=== PATIENT | female | born 1980 | race American Indian/Alaskan Native ===

== ENCOUNTER 2017-05-23 10:16 | Inpatient (IN) | payer OTHER, SELFPAY ==
[2017-05-23 12:09] LABS: Basophils % (Auto) 0.4 % (0.0-1.8); Eosinophils % (Auto) 0.1 % (0.0-4.3); Hematocrit 43.2 % (30.3-42.9); Hemoglobin 14.4 gm/dl (10.1-14.3); Lymphocytes # (Auto) 1.1 K/mm3 (1.2-5.4); Lymphocytes % (Auto) 13.1 % (13.4-35.0); Mean Corpuscular HGB Conc 33 % (30-34); Mean Corpuscular Hemoglobin 33 pg (28-32); Mean Corpuscular Volume 98 fl (79-97); Monocytes # (Auto) 0.4 K/mm3 (0.0-0.8); Monocytes % (Auto) 4.5 % (0.0-7.3); Platelet Count 305 K/mm3 (140-440); Red Blood Count 4.39 M/mm3 (3.65-5.03); Red Cell Distribution Width 13.8 % (13.2-15.2)
[2017-05-23 12:32] LABS: BUN/Creatinine Ratio 14; Blood Urea Nitrogen 10 mg/dL (7-17); Hemolysis Index 28
[2017-05-23 13:16] LABS: Bilirubin,Urine NEG (Negative); Blood,Urine MOD (Negative); Color,Urine Straw (Yellow); Mucus,Urine FEW /HPF; Nitrite,Urine NEG (Negative); Protein,Urine <15 mg/dL mg/dL (Negative); Urobilinogen,Urine < 2.0 mg/dL (<2.0)
[2017-05-23] MEDS ORDERED: NACL 0.9% 1000 ML 1,000 ML IV ONE (18:57)
[2017-05-23] MEDS ORDERED: TORADOL IV ONE (18:57)
--- NOTE | 2017-05-23 19:42 | Emergency Department Report ---
ED Abdominal Pain HPI - General Chief Complaint: Abdominal Pain Stated Complaint: COLD/ABD PAIN Time Seen by Provider: 05/23/17 18:54 Source: patient Mode of arrival: Ambulatory Limitations: No Limitations - History of Present Illness Initial Comments: This is a 36-year-old female nontoxic, well nourished in appearance, no acute signs of distress presents to the ED with c/o of body aches, weakness, abdominal pain x1 week. Patient denies any chest pain, shortness of breath, fever, chills, nausea or vomiting, headache, stiff neck or back pain. Patient stated she One diabetic and has has been taking her insulin as directed by the provider. Patient denies any drug allergies. Past medical history includes type 1 diabetes. MD Complaint: abdominal pain, other (weakness) -: week(s) (1) Location: diffuse Radiation: none Migration to: no migration Severity: mild Severity scale (0 -10): 8 Quality: aching Consistency: constant Improves With: nothing Worsens With: nothing Associated Symptoms: denies other symptoms. denies: nausea, vomiting, diarrhea , fever, chills, constipation, dysuria, hematochezia, melena, hematuria, anorexia, syncope - Related Data Previous Rx's Medication Instructions Recorded Last Taken Type Insulin Aspart [NovoLOG 100 1 dose SQ AC #100 ml 10/26/15 Unknown Rx UNITS/ML VIAL] Insulin NPH/Regular [NovoLIN 70/30] 20 unit SUB-Q BIDDIAB 30 Days 10/26/15 Unknown Rx units Allergies Allergy/AdvReac Type Severity Reaction Status Date / Time No Known Allergies Allergy Verified 01/02/14 11:05 ED Review of Systems ROS: Stated complaint: COLD/ABD PAIN Other details as noted in HPI Constitutional: denies: chills, fever Eyes: denies: eye pain, eye discharge, vision change ENT: denies: ear pain, throat pain Respiratory: denies: cough, shortness of breath, wheezing Cardiovascular: denies: chest pain, palpitations Endocrine: no symptoms reported Gastrointestinal: abdominal pain. denies: nausea, diarrhea Genitourinary: denies: urgency, dysuria, discharge Musculoskeletal: denies: back pain, joint swelling, arthralgia Skin: denies: rash, lesions Neurological: denies: headache, weakness, paresthesias Psychiatric: denies: anxiety, depression Hematological/Lymphatic: denies: easy bleeding, easy bruising ED Past Medical Hx - Past Medical History Previous Medical History?: Yes Hx Congestive Heart Failure: No Hx Diabetes: Yes (type 1) Hx Asthma: No Hx COPD: No Hx HIV: No Additional medical history: Complex left ovarian cyst diagnosed [address] and ultrasound, Vaginal delivery x 2 - Surgical History Past Surgical History?: No - Social History Smoking Status: Never Smoker Substance Use Type: Non Opiate Pain, Prescribed, Other - Medications Home Medications: Home Medications Medication Instructions Recorded Confirmed Last Taken Type Insulin Aspart [NovoLOG 100 1 dose SQ AC #100 ml 10/26/15 Unknown Rx UNITS/ML VIAL] Insulin NPH/Regular [NovoLIN 70/30] 20 unit SUB-Q BIDDIAB 30 Days 10/26/15 Unknown Rx units ED Physical Exam - General Limitations: No Limitations General appearance: alert, in no apparent distress - Head Head exam: Present: atraumatic, normocephalic - Eye Eye exam: Present: normal appearance, PERRL, EOMI Pupils: Present: normal accommodation - ENT ENT exam: Present: normal exam, normal orophraynx, mucous membranes moist, TM's normal bilaterally, normal external ear exam - Neck Neck exam: Present: normal inspection, full ROM. Absent: tenderness, meningismus, lymphadenopathy, thyromegaly - Respiratory Respiratory exam: Present: normal lung sounds bilaterally. Absent: respiratory distress, wheezes, rales, rhonchi, stridor, chest wall tenderness, accessory muscle use, decreased breath sounds, prolonged expiratory - Cardiovascular Cardiovascular Exam: Present: regular rate, normal rhythm, normal heart sounds. Absent: irregular rhythm, systolic murmur, diastolic murmur, rubs, gallop - GI/Abdominal GI/Abdominal exam: Present: soft, normal bowel sounds. Absent: distended, tenderness, guarding, rebound, rigid, diminished bowel sounds - Rectal Rectal exam: Present: deferred - Extremities Exam Extremities exam: Present: normal inspection, full ROM, normal capillary refill. Absent: tenderness, pedal edema, joint swelling, calf tenderness - Back Exam Back exam: Present: normal inspection, full ROM. Absent: tenderness, CVA tenderness (R), CVA tenderness (L), muscle spasm, paraspinal tenderness, vertebral tenderness, rash noted - Neurological Exam Neurological exam: Present: alert, oriented X3, CN II-XII intact, normal gait, reflexes normal - Expanded Neurological Exam Expanded Patient oriented to: Present: person, place, time Cranial nerves: EOM's Intact: Normal, Gag Reflex: Normal, Tongue Deviation: Normal, Nystagmus: Normal, Facial Sensation: Normal, Facial Palsy with Forehead Movement: Normal, Facial Palsy without Forehead Movement: Normal Cerebellar function: Finger to Nose: Normal, Heel to Zapien: Normal, Romberg: Normal Upper motor neuron: Alexis Neglect: Normal, Pronator Drift: Normal, Babinski Sign : Normal, Sensory Extinction: Normal Sensory exam: Upper Extremity Light Touch: Normal, Upper Extremity Pin Prick: Normal, Upper Extremity Temperature: Normal, UE 2 Point Discrimination: Normal, Lower Extremity Light Touch: Normal, Lower Extremity Pin Prick: Normal, Lower Extremity Temperature: Normal, LE 2 Point Discrimination: Normal Motor strength exam: RUE: 5, LUE: 5, RLE: 5, LLE: 5 DTR: bicep (R): 2+, bicep (L): 2+, tricep (R): 2+, tricep (L): 2+, knee (R): 2+ , knee (L): 2+, ankle (R): 2+, ankle (L): 2+ Best Eye Response (Jermyn): (4) open spontaneously Best Motor Response (Jermyn): (6) obeys commands Best Verbal Response (Olga): (5) oriented Jermyn Total: 15 - Psychiatric Psychiatric exam: Present: normal affect, normal mood - Skin Skin exam: Present: warm, dry, intact, normal color. Absent: rash ED Course Vital Signs 05/23/17 05/23/17 11:39 15:31 Temperature 97.7 F 98.2 F Pulse Rate 105 H 124 H Respiratory 20 18 Rate Blood Pressure 128/85 127/81 O2 Sat by Pulse 98 98 Oximetry - Reevaluation(s) Reevaluation #1: 05/23/17 20:03 Patient is speaking in full sentences with no signs of distress noted. - Consultations Consultation #1: 05/23/17 20:06 [address] Shea consulted about patient and agrees to the plan of care in the ED. Dr. Shea accepts patient to his services and stated he will start patient on insulin. ED Medical Decision Making - Lab Data Result diagrams: 05/23/17 11:49 05/23/17 11:49 - Medical Decision Making This is a 36-year-old female that presents with DKA. Patient is stable and was examined by me. Labs obtained and indicated patient in DKA. Dr. Barnett was consulted about patient and agrees for admission. Dr. Shea consulted and is aware of her DKA and acidosis and increased admission. Patient was given 2 L of IV fluids. Dr. Shea stated he will put the patient on insulin and admit patient. Patient is put on cardiac montior. Patient is mental status is intact. A/O 3. CT of abdomen/pelvis with contrast obtained and pending. EKG obtained. At time of admission, the patient does not seem toxic or ill in appearance. No acute signs of distress noted. Patient agrees to admission plan of care. No further questions noted by the patient. Critical care attestation.: If time is entered above; I have spent that time in minutes in the direct care of this critically ill patient, excluding procedure time. ED Disposition Clinical Impression: DKA (diabetic ketoacidoses) Qualifiers: Diabetes mellitus type: type 1 Diabetes mellitus complication detail: without coma Qualified Code(s): E10.10 - Type 1 diabetes mellitus with ketoacidosis without coma Disposition: DC-09 OP ADMIT IP TO THIS HOSP Is pt being admited?: Yes Does the pt Need Aspirin: No Condition: Stable Instructions: Abdominal Pain (ED), Diabetic Ketoacidosis (ED) Referrals: ANDREW GAVIRIA MD [Primary Care Provider] - 3-5 Days
[2017-05-23] MEDS ORDERED: NACL 0.9% 1000 ML 2,000 ML IV ONE (20:12)
[2017-05-23] MEDS ORDERED: SODIUM BICARBONATE IV ONE (20:12)
[2017-05-23] MEDS ORDERED: NOVOLOG SUB-Q ONE ×2 (20:13)
--- NOTE | 2017-05-23 20:16 | History and Physical Report ---
Medications and Allergies Allergies Allergy/AdvReac Type Severity Reaction Status Date / Time No Known Allergies Allergy Verified 01/02/14 11:05 Home Medications Medication Instructions Recorded Confirmed Last Taken Type Insulin Aspart [NovoLOG 100 1 dose SQ AC #100 ml 10/26/15 Unknown Rx UNITS/ML VIAL] Insulin NPH/Regular [NovoLIN 70/30] 20 unit SUB-Q BIDDIAB 30 Days 10/26/15 Unknown Rx units Active Meds: Active Medications Sodium Chloride (Nacl 0.9% 1000 Ml) 2,000 mls @ 999 mls/hr IV BOLUS ONE Stop: 05/23/17 22:12 Exam - Constitutional Vitals: Temp Pulse Resp BP Pulse Ox 98.2 F 124 H 18 127/81 98 05/23/17 15:31 05/23/17 15:31 05/23/17 15:31 05/23/17 15:31 05/23/17 15:31 Results - Labs CBC & Chem 7: 05/23/17 11:49 05/23/17 11:49 Labs: Abnormal lab results 05/23/17 05/23/17 05/23/17 Range/Units 11:49 11:49 11:49 Hgb 14.4 H (10.1-14.3) gm/dl Hct 43.2 H (30.3-42.9) % MCV 98 H (79-97) fl MCH 33 H (28-32) pg Lymph % (Auto) 13.1 L (13.4-35.0) % Lymph # 1.1 L (1.2-5.4) K/mm3 Seg Neutrophils % 81.9 H (40.0-70.0) % VBG pH 7.247 L (7.320-7.420) Sodium 133 L (137-145) mmol/L Chloride 93.0 L (98-107) mmol/L Carbon Dioxide 11 L (22-30) mmol/L Glucose 310 H (65-100) mg/dL POC Glucose (70-105) 05/23/17 Range/Units 15:29 Hgb (10.1-14.3) gm/dl Hct (30.3-42.9) % MCV (79-97) fl MCH (28-32) pg Lymph % (Auto) (13.4-35.0) % Lymph # (1.2-5.4) K/mm3 Seg Neutrophils % (40.0-70.0) % VBG pH (7.320-7.420) Sodium (137-145) mmol/L Chloride (98-107) mmol/L Carbon Dioxide (22-30) mmol/L Glucose (65-100) mg/dL POC Glucose 242 H (70-105)
--- NOTE | 2017-05-23 20:44 | XRay Report ---
FINAL REPORT EXAM: XR CHEST ROUTINE 2V HISTORY: cough TECHNIQUE: PA and lateral views of the chest PRIORS: None. FINDINGS: Lines, tubes, and devices: N/A Lungs and pleura: Trachea is normal in position. Lungs are clear of infiltrate, pleural effusion, vascular congestion, or pneumothorax. Cardiomediastinal silhouette: Cardiac and mediastinal silhouettes are unremarkable. Other: Bony structures are intact. Bilateral nipple bars are in place. IMPRESSION: No acute cardiopulmonary process seen.
[2017-05-23 21:14] LABS: BUN/Creatinine Ratio 11; Blood Urea Nitrogen 9 mg/dL (7-17); Calcium 9.5 mg/dL (8.4-10.2); Hemolysis Index 0
--- NOTE | 2017-05-23 21:54 | Cat Scan Report ---
FINAL REPORT EXAM: CT ABDOMEN PELVIS W CON HISTORY: abd pain TECHNIQUE: Standard enhanced CT of the abdomen and pelvis. Coronal and sagittal reconstruction was also performed. Delayed imaging through the kidneys and bladder was obtained. Contrast: 100 mL Omnipaque 300 given IV. PRIORS: CT a/P 01/03/2015 FINDINGS: Within the abdomen, the liver, spleen, pancreas, gallbladder, adrenal glands, and kidneys are unremarkable. No evidence for retroperitoneal or pelvic lymphadenopathy is seen. The bowel loops have normal caliber. No soft tissue mass, fluid collection, inflammatory change, or free air is seen within the abdomen or pelvis. The appendix is normal. Within the pelvis, the bladder is unremarkable. The uterus is normal. The left ovary is located cranial to the uterine fundus along midline. This position is in the lower abdomen. It is enlarged and contains a 3.9 x 3.6 cm cystic focus (axial image 1059, series 3). This can be further evaluated with ultrasound. No evidence for mass or lymphadenopathy is seen in the pelvis. Images through the upper abdomen include the lung bases which are expanded and clear. Bony structures show no focal abnormalities and are intact. Numerous nodular densities are present in the subcutaneous fat over both buttocks. This may be due to injection sites and are stable. A metallic navel ring is noted in place. IMPRESSION: No acute intra-abdominal process noted. Left ovarian cyst identified in the midline lower abdomen. This can be further evaluated by ultrasound.
[2017-05-24] MEDS ORDERED: TORADOL IV ONE (04:23)
[2017-05-24] MEDS ORDERED: TORADOL ONE (04:25)
[2017-05-24] MEDS ORDERED: D50W (25GM) Syringe IV PRN ×2 (07:39→09:18)
[2017-05-24] MEDS ORDERED: D5/0.45NS 1,000 ML IV SCH (08:00)
[2017-05-24] MEDS ORDERED: D5W/0.45% NACL/KCL 20 MEQ 20 MEQ/1,000 ML BAG IV SCH (08:00)
[2017-05-24 08:07] LABS: Basophils % (Auto) 0.3 % (0.0-1.8); Eosinophils % (Auto) 0.1 % (0.0-4.3); Hematocrit 42.3 % (30.3-42.9); Hemoglobin 13.9 gm/dl (10.1-14.3); Lymphocytes # (Auto) 2.2 K/mm3 (1.2-5.4); Lymphocytes % (Auto) 24.3 % (13.4-35.0); Mean Corpuscular HGB Conc 33 % (30-34); Mean Corpuscular Hemoglobin 33 pg (28-32); Mean Corpuscular Volume 100 fl (79-97); Monocytes # (Auto) 1.2 K/mm3 (0.0-0.8); Monocytes % (Auto) 13.9 % (0.0-7.3); Platelet Count 287 K/mm3 (140-440); Red Blood Count 4.25 M/mm3 (3.65-5.03); Red Cell Distribution Width 14.3 % (13.2-15.2)
[2017-05-24 08:14] LABS: BUN/Creatinine Ratio 10; Blood Urea Nitrogen 7 mg/dL (7-17); Calcium 8.6 mg/dL (8.4-10.2); Hemolysis Index 12; Magnesium 1.8 mg/dL (1.7-2.3)
[2017-05-24] MEDS ORDERED: DULCOLAX PR PRN ×2 (09:00→10:00)
[2017-05-24] MEDS ORDERED: ALUM-MAG HYDROX-SIMETH 200-200-20MG/5ML PO PRN (09:00)
[2017-05-24] MEDS: NovoLIN R 100 UNITS in NACL 0.9% 99 ML IV SCH ×2 (09:06→22:06)
[2017-05-24] MEDS ORDERED: MILK OF MAGNESIA PO PRN (09:16)
[2017-05-24] MEDS ORDERED: TYLENOL PO PRN (09:16)
[2017-05-24] MEDS ORDERED: NACL 0.9% 1000 ML 1,000 ML ONE (09:30)
[2017-05-24] MEDS ORDERED: NovoLIN R 100 UNITS in NACL 0.9% 99 ML IV SCH (10:00)
[2017-05-24] MEDS ORDERED: KCL 10MEQ/100ML 10 MEQ/100 ML BAG IV PRN (10:00)
[2017-05-24] MEDS: MORPHINE IV PRN ×2 (10:10→15:18)
[2017-05-24] MEDS: LOVENOX SUB-Q SCH (10:20)
[2017-05-24 10:59] LABS: BUN/Creatinine Ratio 10; Blood Urea Nitrogen 8 mg/dL (7-17); Calcium 8.8 mg/dL (8.4-10.2); Hemolysis Index 9; Magnesium 1.8 mg/dL (1.7-2.3)
[2017-05-24] MEDS: KCL 10MEQ/100ML 10 MEQ/100 ML BAG IV SCH ×4 (11:00→18:41)
[2017-05-24 12:11] LABS: BUN/Creatinine Ratio 10; Blood Urea Nitrogen 8 mg/dL (7-17); Calcium 8.7 mg/dL (8.4-10.2); Hemolysis Index 15
[2017-05-24] MEDS: D5W/0.45% NACL/KCL 20 MEQ 20 MEQ/1,000 ML BAG IV SCH ×2 (13:00→23:08)
[2017-05-24 14:41] LABS: BUN/Creatinine Ratio 10; Blood Urea Nitrogen 8 mg/dL (7-17); Calcium 8.5 mg/dL (8.4-10.2); Hemolysis Index 15
[2017-05-24 17:28] LABS: BUN/Creatinine Ratio 8; Blood Urea Nitrogen 6 mg/dL (7-17); Calcium 8.6 mg/dL (8.4-10.2); Hemolysis Index 31
--- NOTE | 2017-05-24 23:31 | History and Physical Report ---
History of Present Illness Date of examination: 05/24/17 Date of admission: 05/24/17 07:39 Chief complaint: CC Abd pain 1 week Gen weakness 1 day History of present illness: History of Present Illness This is a 36-year-old female nontoxic, well nourished in appearance, no acute signs of distress presents to the ED with c/o of body aches, weakness, abdominal pain x1 week. Patient denies any chest pain, shortness of breath, fever, chills, nausea or vomiting, headache, stiff neck or back pain. Patient stated she One diabetic and has has been taking her insulin as directed by the provider. Patient denies any drug allergies. Past medical history includes type 1 diabetes. No exacerbating or relieving factors Past Medical History Previous Medical History?: Yes Hx Congestive Heart Failure: No Hx Diabetes: Yes (type 1) Hx Asthma: No Hx COPD: No Hx HIV: No Additional medical history: Complex left ovarian cyst diagnosed [address] and ultrasound, Vaginal delivery x 2 Surgical History Past Surgical History?: No Social History Smoking Status: Never Smoker Substance Use Type: Non Opiate Pain, Prescribed, Other Family Hx Htn Medications Home Medications: Home Medications Medication Instructions Recorded Confirmed Last Taken Type Insulin Aspart [NovoLOG 100 1 dose SQ AC #100 ml 10/26/15 Unknown Rx UNITS/ML VIAL] Insulin NPH/Regular [NovoLIN 70/30] 20 unit SUB-Q BIDDIAB 30 Days 10/26/15 Unknown Rx units Review of Systems Stated complaint: COLD/ABD PAIN Other details as noted in HPI Constitutional: denies: chills, fever Eyes: denies: eye pain, eye discharge, vision change ENT: denies: ear pain, throat pain Respiratory: denies: cough, shortness of breath, wheezing Cardiovascular: denies: chest pain, palpitations Endocrine: no symptoms reported Gastrointestinal: abdominal pain. denies: nausea, diarrhea Genitourinary: denies: urgency, dysuria, discharge Musculoskeletal: denies: back pain, joint swelling, arthralgia Skin: denies: rash, lesions Neurological: denies: headache, weakness, paresthesias Psychiatric: denies: anxiety, depression Hematological/Lymphatic: denies: easy bleeding, easy bruising Medications and Allergies Allergies Allergy/AdvReac Type Severity Reaction Status Date / Time No Known Allergies Allergy Verified 01/02/14 11:05 Home Medications Medication Instructions Recorded Confirmed Last Taken Type Ondansetron [Zofran Odt] 4 mg PO Q8HR PRN #15 tab.rapdis 05/23/17 Unknown Rx Active Meds: Active Medications Acetaminophen (Tylenol) 650 mg PO Q4H PRN PRN Reason: Pain MILD(1-3)/Fever >100.5/MARTINEZ Al Hydrox/Mg Hydrox/Simethicone (Alum-Mag Hydrox-Simeth 861-530-03gs/5ml) 30 ml PO Q4H PRN PRN Reason: Indigestion Bisacodyl (Dulcolax) 10 mg CA QDAY PRN PRN Reason: Constipation unrelieved by MOM Dextrose (D50w (25gm) Syringe) 0 ml IV PRN PRN PRN Reason: Hypoglycemia Enoxaparin Sodium (Lovenox) 40 mg SUB-Q QDAY MOHINDER Last Admin: 05/24/17 10:20 Dose: 40 mg Insulin Human Regular 100 (units/ Sodium Chloride) 100 mls @ 1 mls/hr IV TITR MOHINDER; 1 UNITS/HR PRN Reason: Protocol Last Titration: 05/24/17 23:27 Dose: 8 units/hr, 8 mls/hr Potassium Chloride/Dextrose/Sod Cl (D5w/0.45% Nacl/Kcl 20 Meq) 20 meq in 1,000 mls @ 125 mls/hr IV DIRECT MOHINDER Last Admin: 05/24/17 23:08 Dose: 125 mls/hr Potassium Chloride (Kcl 10meq/100ml) 10 meq in 100 mls @ 100 mls/hr IV Q1H PRN PRN Reason: SEE COMMENTS Stop: 05/25/17 06:00 Magnesium Hydroxide (Milk Of Magnesia) 30 ml PO Q4H PRN PRN Reason: Constipation Morphine Sulfate (Morphine) 2 mg IV Q4H PRN PRN Reason: Pain, Moderate (4-6) Morphine Sulfate (Morphine) 4 mg IV Q4H PRN PRN Reason: Pain , Severe (7-10) Last Admin: 05/24/17 15:18 Dose: 4 mg Ondansetron HCl (Zofran) 4 mg IV Q8H PRN PRN Reason: N/V unrelieved by Reglan Oxycodone/Acetaminophen (Percocet 5/325) 1 tab PO Q6H PRN PRN Reason: Pain, Moderate (4-6) Exam - Constitutional Vitals: Temp Pulse Resp BP Pulse Ox 99.1 F 99 H 22 104/62 99 05/24/17 06:56 05/24/17 06:56 05/24/17 06:56 05/24/17 06:56 05/24/17 06:56 General appearance: Present: mild distress, well-nourished - EENT Eyes: Present: PERRL ENT: hearing intact, clear oral mucosa - Neck Neck: Present: supple, normal ROM - Respiratory Respiratory effort: normal Respiratory: bilateral: CTA - Cardiovascular Heart rate: 90 Rhythm: regular Heart Sounds: Present: S1 & S2. Absent: rub, click - Extremities Extremities: no ischemia, pulses intact, pulses symmetrical, No edema Peripheral Pulses: within normal limits - Abdominal General gastrointestinal: Present: soft, non-tender, non-distended, normal bowel sounds Female genitourinary: Present: normal - Rectal Rectal Exam: deferred - Integumentary Integumentary: Present: clear, warm, dry - Musculoskeletal Musculoskeletal: gait normal, strength equal bilaterally - Psychiatric Psychiatric: appropriate mood/affect, intact judgment & insight - Neurologic Neurologic: CNII-XII intact, moves all extremities - Allied Health Allied health notes reviewed: nursing, case management Results - Labs CBC & Chem 7: 05/24/17 07:40 05/25/17 09:36 Labs: Laboratory Last Values WBC 8.9 K/mm3 (4.5-11.0) 05/24/17 07:40 RBC 4.25 M/mm3 (3.65-5.03) 05/24/17 07:40 Hgb 13.9 gm/dl (10.1-14.3) 05/24/17 07:40 Hct 42.3 % (30.3-42.9) 05/24/17 07:40 MCV 100 fl (79-97) H 05/24/17 07:40 MCH 33 pg (28-32) H 05/24/17 07:40 MCHC 33 % (30-34) 05/24/17 07:40 RDW 14.3 % (13.2-15.2) 05/24/17 07:40 Plt Count 287 K/mm3 (140-440) 05/24/17 07:40 Lymph % (Auto) 24.3 % (13.4-35.0) 05/24/17 07:40 [place] % (Auto) 13.9 % (0.0-7.3) H 05/24/17 07:40 Eos % (Auto) 0.1 % (0.0-4.3) 05/24/17 07:40 Baso % (Auto) 0.3 % (0.0-1.8) 05/24/17 07:40 Lymph # 2.2 K/mm3 (1.2-5.4) 05/24/17 07:40 [place] # 1.2 K/mm3 (0.0-0.8) H 05/24/17 07:40 Eos # 0.0 K/mm3 (0.0-0.4) 05/24/17 07:40 Baso # 0.0 K/mm3 (0.0-0.1) 05/24/17 07:40 Seg Neutrophils % 61.4 % (40.0-70.0) 05/24/17 07:40 Seg Neutrophils # 5.4 K/mm3 (1.8-7.7) 05/24/17 07:40 VBG pH 7.247 (7.320-7.420) L 05/23/17 11:49 Sodium 136 mmol/L (137-145) L 05/24/17 16:11 Potassium 5.0 mmol/L (3.6-5.0) 05/24/17 16:11 Chloride 99.6 mmol/L (98-107) 05/24/17 16:11 Carbon Dioxide 3 mmol/L (22-30) L* 05/24/17 16:11 Anion Gap 38 mmol/L 05/24/17 16:11 BUN 6 mg/dL (7-17) L 05/24/17 16:11 Creatinine 0.8 mg/dL (0.7-1.2) 05/24/17 16:11 Estimated GFR > 60 ml/min 05/24/17 16:11 BUN/Creatinine Ratio 8 % 05/24/17 16:11 Glucose 184 mg/dL (65-100) H 05/24/17 16:11 POC Glucose 164 (70-105) H 05/24/17 23:21 Hemoglobin A1c 10.5 % (4-6) H 05/24/17 07:40 Osmolality 290 Mosm/kg 05/24/17 07:40 Calcium 8.6 mg/dL (8.4-10.2) 05/24/17 16:11 Phosphorus 2.90 mg/dL (2.5-4.5) 05/24/17 10:29 Magnesium 1.80 mg/dL (1.7-2.3) 05/24/17 10:29 HCG, Qual Negative (Negative) 05/23/17 19:37 Urine Color Straw (Yellow) 05/23/17 12:28 Urine Turbidity Clear (Clear) 05/23/17 12:28 Urine pH 5.0 (5.0-7.0) 05/23/17 12:28 Ur Specific [place] 1.023 (1.003-1.030) 05/23/17 12:28 Urine Protein <15 mg/dl mg/dL (Negative) 05/23/17 12:28 Urine Glucose (UA) >=500 mg/dL (Negative) 05/23/17 12:28 Urine Ketones 80 mg/dL (Negative) 05/23/17 12:28 Urine Blood Mod (Negative) 05/23/17 12:28 Urine Nitrite Neg (Negative) 05/23/17 12:28 Urine Bilirubin Neg (Negative) 05/23/17 12:28 Urine Urobilinogen < 2.0 mg/dL (<2.0) 05/23/17 12:28 Ur Leukocyte Esterase Neg (Negative) 05/23/17 12:28 Urine WBC (Auto) 1.0 /HPF (0.0-6.0) 05/23/17 12:28 Urine RBC (Auto) 3.0 /HPF (0.0-6.0) 05/23/17 12:28 U Epithel Cells (Auto) 3.0 /HPF (0-13.0) 05/23/17 12:28 Urine Mucus Few /HPF 05/23/17 12:28 BMP 05/25/17 05/25/17 05/25/17 00:49 02:25 07:46 Sodium 134 L 134 L 137 Potassium 4.2 4.6 3.5 L D Chloride 103.5 103.6 103.3 Carbon Dioxide 12 L D 12 L 12 L BUN 7 7 5 L Creatinine 0.8 0.8 0.6 L Glucose 138 H 127 H 163 H Calcium 8.2 L 8.2 L 8.2 L 05/25/17 09:36 Sodium 137 Potassium 3.5 L Chloride 103.2 Carbon Dioxide 13 L BUN 5 L Creatinine 0.6 L Glucose 165 H Calcium 8.4 - Imaging and Cardiology EKG: report reviewed Chest x-ray: report reviewed (Naf) Abdominal x-ray: report reviewed (NAF) Assessment and Plan Assessment and plan: The high probability of a clinically significant, sudden or life threatening deterioration of the [Pulmonary, cadiac, renal] system(s) required my full and direct attention, intervention and personal management. The aggregate critical care time was [31] minutes. This time is in addition to time spent performing reported procedures but includes the following: [x] Data Review and interpretation [x] Patient assessment and monitoring of vital signs [x] Documentation [x] Medication orders and management Advance Directives: Yes (Full code) VTE prophylaxis?: Chemical Plan of care discussed with patient/family: Yes - Patient Problems (1) DKA (diabetic ketoacidoses) Current Visit: Yes Status: Acute Qualifiers: Diabetes mellitus type: type 1 Diabetes mellitus complication detail: without coma Qualified Code(s): E10.10 - Type 1 diabetes mellitus with ketoacidosis without coma Plan to address problem: DKA protocol IV Insulin and IV fluids Monitor Electrolytes Adjust insulin dosage (2) DVT prophylaxis Current Visit: No Status: Acute Plan to address problem: On Lovenox
[2017-05-25 01:39] LABS: BUN/Creatinine Ratio 9; Blood Urea Nitrogen 7 mg/dL (7-17); Calcium 8.2 mg/dL (8.4-10.2); Hemolysis Index 22
[2017-05-25 03:17] LABS: BUN/Creatinine Ratio 9; Blood Urea Nitrogen 7 mg/dL (7-17); Calcium 8.2 mg/dL (8.4-10.2); Hemolysis Index 61
[2017-05-25] MEDS: D5W/0.45% NACL/KCL 20 MEQ 20 MEQ/1,000 ML BAG IV SCH (06:50)
[2017-05-25 08:15] LABS: BUN/Creatinine Ratio 8; Blood Urea Nitrogen 5 mg/dL (7-17); Calcium 8.2 mg/dL (8.4-10.2); Hemolysis Index 12
[2017-05-25 10:23] LABS: BUN/Creatinine Ratio 8; Blood Urea Nitrogen 5 mg/dL (7-17); Calcium 8.4 mg/dL (8.4-10.2); Hemolysis Index 8
[2017-05-25] MEDS: LOVENOX SUB-Q SCH (10:46)
[2017-05-25] MEDS: MORPHINE IV PRN ×2 (12:24→20:19)
[2017-05-25] MEDS: NOVOLOG SUB-Q SCH ×2 (20:19→23:52)
--- NOTE | 2017-05-26 02:00 | Progress Note ---
Assessment and Plan - Patient Problems (1) DKA (diabetic ketoacidoses) Current Visit: Yes Status: Acute Qualifiers: Diabetes mellitus type: type 1 Diabetes mellitus complication detail: without coma Qualified Code(s): E10.10 - Type 1 diabetes mellitus with ketoacidosis without coma Plan to address problem: DKA protocol IV Insulin stopped and IV fluids Monitor Electrolytes Adjust insulin dosage Downgrade to Telemetry (2) DVT prophylaxis Current Visit: No Status: Acute Plan to address problem: On Lovenox Subjective Date of service: 05/25/17 Principal diagnosis: DKA Interval history: Late entry Doing bettter . Abdominal pain better. Objective - Constitutional Vitals: Vital Signs - 12hr 05/25/17 05/25/17 05/25/17 14:00 14:15 14:30 Temperature Pulse Rate 95 H 97 H 107 H Respiratory 18 20 17 Rate Blood Pressure 122/76 122/76 122/69 O2 Sat by Pulse 99 99 99 Oximetry 05/25/17 05/25/17 05/25/17 14:45 15:00 15:15 Temperature Pulse Rate 96 H 99 H 97 H Respiratory 19 23 21 Rate Blood Pressure 122/69 118/71 118/71 O2 Sat by Pulse 99 99 Oximetry 05/25/17 05/25/17 05/25/17 15:30 15:45 16:00 Temperature Pulse Rate 109 H 103 H 103 H Respiratory 15 19 23 Rate Blood Pressure 124/72 124/72 117/71 O2 Sat by Pulse 100 98 Oximetry 05/25/17 05/25/17 05/25/17 16:15 16:30 16:45 Temperature Pulse Rate 107 H 101 H 106 H Respiratory 20 22 21 Rate Blood Pressure 117/71 123/79 123/79 O2 Sat by Pulse 100 98 99 Oximetry 05/25/17 05/25/17 05/25/17 17:11 19:47 23:12 Temperature 97.4 F L 98.8 F Pulse Rate 113 H 132 H 115 H Respiratory 19 20 20 Rate Blood Pressure 123/79 130/77 118/67 O2 Sat by Pulse 99 99 Oximetry General appearance: Present: no acute distress, well-nourished - EENT Eyes: PERRL, EOM intact ENT: hearing intact, clear oral mucosa Ears: bilateral: normal - Neck Neck: supple, normal ROM - Respiratory Respiratory effort: normal Respiratory: bilateral: CTA - Breasts Breasts: normal - Cardiovascular Rhythm: regular Heart Sounds: Present: S1 & S2. Absent: gallop, rub Extremities: pulses intact, No edema, normal color, Full ROM - Gastrointestinal General gastrointestinal: Present: soft, non-tender, non-distended, normal bowel sounds - Genitourinary Female genitourinary: normal - Integumentary Integumentary: clear, warm, dry - Musculoskeletal Musculoskeletal: 1, strength equal bilaterally - Neurologic Neurologic: moves all extremities - Psychiatric Psychiatric: memory intact, appropriate mood/affect, intact judgment & insight - Labs CBC & Chem 7: 05/24/17 07:40 05/25/17 09:36 Labs: Abnormal lab results 05/25/17 05/25/17 05/25/17 Range/Units 02:18 02:25 03:24 Sodium 134 L (137-145) mmol/L Potassium (3.6-5.0) mmol/L Carbon Dioxide 12 L (22-30) mmol/L BUN (7-17) mg/dL Creatinine (0.7-1.2) mg/dL Glucose 127 H (65-100) mg/dL POC Glucose 123 H 121 H (70-105) Calcium 8.2 L (8.4-10.2) mg/dL 05/25/17 05/25/17 05/25/17 Range/Units 06:38 07:46 07:53 Sodium (137-145) mmol/L Potassium 3.5 L D (3.6-5.0) mmol/L Carbon Dioxide 12 L (22-30) mmol/L BUN 5 L (7-17) mg/dL Creatinine 0.6 L (0.7-1.2) mg/dL Glucose 163 H (65-100) mg/dL POC Glucose 178 H 154 H (70-105) Calcium 8.2 L (8.4-10.2) mg/dL 05/25/17 05/25/17 05/25/17 Range/Units 09:36 09:52 12:11 Sodium (137-145) mmol/L Potassium 3.5 L (3.6-5.0) mmol/L Carbon Dioxide 13 L (22-30) mmol/L BUN 5 L (7-17) mg/dL Creatinine 0.6 L (0.7-1.2) mg/dL Glucose 165 H (65-100) mg/dL POC Glucose 165 H 182 H (70-105) Calcium (8.4-10.2) mg/dL 05/25/17 05/25/17 05/25/17 Range/Units 13:23 20:07 23:50 Sodium (137-145) mmol/L Potassium (3.6-5.0) mmol/L Carbon Dioxide (22-30) mmol/L BUN (7-17) mg/dL Creatinine (0.7-1.2) mg/dL Glucose (65-100) mg/dL POC Glucose 111 H 440 H 229 H (70-105) Calcium (8.4-10.2) mg/dL
[2017-05-26] MEDS: MORPHINE IV PRN ×3 (04:43→20:40)
[2017-05-26] MEDS: ZOFRAN IV PRN ×2 (04:44→16:31)
[2017-05-26] MEDS: NOVOLOG SUB-Q SCH ×5 (04:44→22:06)
[2017-05-26] MEDS: LOVENOX SUB-Q SCH (10:05)
[2017-05-26] MEDS: PERCOCET 5/325 PO PRN (10:09)
--- NOTE | 2017-05-26 13:58 | Event Note ---
Date: 05/26/17 Patient had a progress note by Dr. Chase earlier this morning Patient complains of right-sided chest pain and shoulder pain and has moderate tenderness in the right chest in the midaxillary plane It hurts to move or take a deep breath Most likely musculoskeletal pain Chest x-ray if not done already Continue pain medication Potassium supplements Monitor labs closely Patient still in metabolic acidosis
[2017-05-26] MEDS ORDERED: K-DUR PO ONE ×2 (14:00→17:00)
[2017-05-27] MEDS: NOVOLOG SUB-Q SCH ×5 (01:37→22:00)
[2017-05-27 08:39] LABS: Hematocrit 39.2 % (30.3-42.9); Hemoglobin 13.3 gm/dl (10.1-14.3); Mean Corpuscular HGB Conc 34 % (30-34); Mean Corpuscular Hemoglobin 33 pg (28-32); Mean Corpuscular Volume 97 fl (79-97); Platelet Count 244 K/mm3 (140-440); Red Blood Count 4.04 M/mm3 (3.65-5.03); Red Cell Distribution Width 14.3 % (13.2-15.2)
[2017-05-27 09:00] LABS: BUN/Creatinine Ratio 8; Blood Urea Nitrogen 5 mg/dL (7-17); Calcium 8.4 mg/dL (8.4-10.2); Hemolysis Index 12
[2017-05-27] MEDS: LOVENOX SUB-Q SCH (09:31)
--- NOTE | 2017-05-27 13:25 | Progress Note ---
Assessment and Plan Assessment and Plan - Patient Problems (1) DKA (diabetic ketoacidoses) Current Visit: Yes Status: Acute Qualifiers: Diabetes mellitus type: type 1 Diabetes mellitus complication detail: without coma Qualified Code(s): E10.10 - Type 1 diabetes mellitus with ketoacidosis without coma Plan to address problem: Her blood sugars are fair However she still has metabolic acidosis although it's improving Continue IV fluids Change Accu-Cheks to before meals and at bedtime Leukopenia: Unclear etiology We will monitor Productive cough: Likely acute bronchitis Start on antibiotics by mouth (2) DVT prophylaxis Current Visit: No Status: Acute Plan to address problem: On Lovenox Subjective Date of service: 05/27/17 Principal diagnosis: DKA Interval history: Patient is awake and alert and oriented Complains of feeling dizzy Also complains of cough with scant greenish sputum and body aches Denies chest pain or shortness of breath Denies abdominal pain nausea or vomitings Labs reviewed Objective - Constitutional Vitals: Vital Signs - 12hr 05/27/17 05/27/17 05/27/17 04:00 04:22 08:42 Temperature 97.9 F 98.9 F Pulse Rate 90 84 114 H Respiratory 18 16 Rate Blood Pressure 111/83 135/85 O2 Sat by Pulse 99 99 Oximetry 05/27/17 11:06 Temperature Pulse Rate 113 H Respiratory Rate Blood Pressure 119/69 O2 Sat by Pulse 99 Oximetry General appearance: Present: no acute distress - EENT Eyes: PERRL, EOM intact ENT: hearing intact, clear oral mucosa - Neck Neck: supple, normal ROM - Respiratory Respiratory effort: normal Respiratory: bilateral: CTA - Cardiovascular Rhythm: regular Heart Sounds: Present: S1 & S2 Extremities: No edema - Gastrointestinal General gastrointestinal: Present: soft, non-tender - Integumentary Integumentary: clear - Musculoskeletal Musculoskeletal: strength equal bilaterally - Neurologic Neurologic: no focal deficits - Psychiatric Psychiatric: appropriate mood/affect - Labs CBC & Chem 7: 05/27/17 07:58 05/27/17 07:58 Labs: Abnormal lab results 05/26/17 05/27/17 05/27/17 Range/Units 16:22 01:01 07:58 WBC 2.2 L (4.5-11.0) K/mm3 MCH 33 H (28-32) pg Carbon Dioxide (22-30) mmol/L BUN (7-17) mg/dL Creatinine (0.7-1.2) mg/dL Glucose (65-100) mg/dL POC Glucose 156 H 50 L (70-105) 05/27/17 05/27/17 05/27/17 Range/Units 07:58 08:35 11:14 WBC (4.5-11.0) K/mm3 MCH (28-32) pg Carbon Dioxide 16 L (22-30) mmol/L BUN 5 L (7-17) mg/dL Creatinine 0.6 L (0.7-1.2) mg/dL Glucose 119 H (65-100) mg/dL POC Glucose 130 H 239 H (70-105)
[2017-05-27] MEDS: LEVAQUIN PO SCH (15:18)
[2017-05-27] MEDS: MORPHINE IV PRN (15:24)
[2017-05-27] MEDS: ZOFRAN IV PRN (17:37)
[2017-05-28 07:32] LABS: Hematocrit 39.6 % (30.3-42.9); Hemoglobin 13.7 gm/dl (10.1-14.3); Mean Corpuscular HGB Conc 35 % (30-34); Mean Corpuscular Hemoglobin 33 pg (28-32); Mean Corpuscular Volume 95 fl (79-97); Platelet Count 247 K/mm3 (140-440); Red Blood Count 4.16 M/mm3 (3.65-5.03); Red Cell Distribution Width 14.1 % (13.2-15.2)
[2017-05-28 07:47] LABS: BUN/Creatinine Ratio 10; Blood Urea Nitrogen 5 mg/dL (7-17); Calcium 8.2 mg/dL (8.4-10.2)
[2017-05-28 07:48] LABS: Hemolysis Index 22
[2017-05-28] MEDS ORDERED: K-DUR PO NR (08:00)
[2017-05-28] MEDS: LOVENOX SUB-Q SCH (10:20)
[2017-05-28] MEDS: NOVOLOG SUB-Q SCH ×7 (10:20→22:00)
[2017-05-28] MEDS ORDERED: K-DUR PO ONE (14:00)
--- NOTE | 2017-05-28 14:15 | Progress Note ---
Assessment and Plan /DKA /diabetic ketoacidoses without coma Her blood sugars are fair However she still has metabolic acidosis although it's improving Continue IV fluids Change Accu-Cheks to before meals and at bedtime /Leukopenia: Unclear etiology We will monitor order hiv /Productive cough: Likely acute bronchitis cont on antibiotics by mouth /hypokalemia cont to replete and monitor / DVT prophylaxis On Lovenox Brief history: This is a 36-year-old female nontoxic, well nourished in appearance, no acute signs of distress presents to the ED with c/o of body aches , weakness, abdominal pain x1 week. She admitted with DKA protocol Radiological test: Chest x-ray Abdominal pelvis CT - no acute intra-abdominal abnormalities. Left ovarian cyst Hospitalist Physical exam: GENERAL: well-developed and well-nourished lying on bed appeared to be in no discomfort. HEENT: Normocephalic. Atraumatic. No conjunctival congestion or icterus. Patient has moist mucous membranes. NECK: Supple. Trachea midline. CHEST/LUNGS: Clear to auscultated bilaterally, breathing nonlabored. No wheezes crackles or rhonchi. HEART/CARDIOVASCULAR: Regular in rate and rhythm. S1 and S2 positive. ABDOMEN: Abdomen is soft, nontender. Patient has normal bowel sounds. SKIN: There is no rash. Warm and dry. NEURO: No focal motor deficit. Follows command. MUSCULOSKELETAL: No joint effusion or tenderness. EXTRIMITY: No edema, no cyanosis or clubbing. PSYCH: Cooperative. Subjective Date of service: 05/28/17 Principal diagnosis: DKA Objective - Constitutional Vitals: Vital Signs - 12hr 05/28/17 05/28/17 04:31 09:20 Temperature 99.2 F 98.7 F Pulse Rate 84 83 Respiratory 18 16 Rate Blood Pressure 128/81 Blood Pressure 124/75 [Left] O2 Sat by Pulse 99 97 Oximetry - Labs CBC & Chem 7: 05/28/17 07:11 05/28/17 07:11 Labs: Abnormal lab results 05/27/17 05/27/17 05/27/17 Range/Units 15:15 22:04 23:25 WBC (4.5-11.0) K/mm3 MCH (28-32) pg MCHC (30-34) % Potassium (3.6-5.0) mmol/L Carbon Dioxide (22-30) mmol/L BUN (7-17) mg/dL Creatinine (0.7-1.2) mg/dL Glucose (65-100) mg/dL POC Glucose 318 H 47 L 166 H (70-105) Calcium (8.4-10.2) mg/dL 05/28/17 05/28/17 05/28/17 Range/Units 07:11 07:11 07:48 WBC 2.1 L (4.5-11.0) K/mm3 MCH 33 H (28-32) pg MCHC 35 H (30-34) % Potassium 3.2 L (3.6-5.0) mmol/L Carbon Dioxide 21 L (22-30) mmol/L BUN 5 L (7-17) mg/dL Creatinine 0.5 L (0.7-1.2) mg/dL Glucose 216 H (65-100) mg/dL POC Glucose 194 H (70-105) Calcium 8.2 L (8.4-10.2) mg/dL 05/28/17 Range/Units 11:50 WBC (4.5-11.0) K/mm3 MCH (28-32) pg MCHC (30-34) % Potassium (3.6-5.0) mmol/L Carbon Dioxide (22-30) mmol/L BUN (7-17) mg/dL Creatinine (0.7-1.2) mg/dL Glucose (65-100) mg/dL POC Glucose 226 H (70-105) Calcium (8.4-10.2) mg/dL
[2017-05-28] MEDS: LEVAQUIN PO SCH (14:50)
[2017-05-29] MEDS: PERCOCET 5/325 PO PRN (01:25)
[2017-05-29] MEDS: LOVENOX SUB-Q SCH (10:41)
[2017-05-29] MEDS: NOVOLOG SUB-Q SCH ×2 (11:30→12:04)
--- NOTE | 2017-05-29 12:04 | Progress Note ---
Assessment and Plan Assessment and plan: Patient is 36-year-old female with past medical history of DM who presents to the ED with c/o of body aches, weakness, abdominal pain x1 week. She admitted with DKA protocol. DKA /diabetic ketoacidoses without coma Blood sugars and metabolic acidosis improved D/C IV fluids Accu-Cheks to before meals and at bedtime Leukopenia Etiology Unclear We will monitor HIV test done; Non reactive Productive cough Most likely acute bronchitis Continue on oral Levaquin Hypokalemia Replaced Closely monitor electrolytes DVT prophylaxis On Lovenox History Interval history: Patient denies having shortness of breath or dizziness. Labs and nursing notes. Hospitalist Physical - Constitutional Vitals: Temp Pulse Resp BP Pulse Ox 98.2 F 82 20 121/80 98 05/29/17 09:08 05/29/17 09:08 05/29/17 09:08 05/29/17 09:08 05/29/17 09:08 General appearance: Present: no acute distress - EENT Eyes: Present: PERRL ENT: hearing intact - Neck Neck: Present: supple - Respiratory Respiratory effort: normal Respiratory: bilateral: CTA - Cardiovascular Rhythm: regular Heart Sounds: Present: S1 & S2 - Abdominal General gastrointestinal: soft, non-tender - Integumentary Integumentary: Present: clear, warm, dry - Psychiatric Psychiatric: appropriate mood/affect - Neurologic Neurologic: CNII-XII intact - Allied Health Allied health notes reviewed: nursing Results - Labs CBC & Chem 7: 05/28/17 07:11 05/28/17 07:11 Labs: Laboratory Last Values WBC 2.1 K/mm3 (4.5-11.0) L 05/28/17 07:11 RBC 4.16 M/mm3 (3.65-5.03) 05/28/17 07:11 Hgb 13.7 gm/dl (10.1-14.3) 05/28/17 07:11 Hct 39.6 % (30.3-42.9) 05/28/17 07:11 MCV 95 fl (79-97) 05/28/17 07:11 MCH 33 pg (28-32) H 05/28/17 07:11 MCHC 35 % (30-34) H 05/28/17 07:11 RDW 14.1 % (13.2-15.2) 05/28/17 07:11 Plt Count 247 K/mm3 (140-440) 05/28/17 07:11 Lymph % (Auto) 24.3 % (13.4-35.0) 05/24/17 07:40 [facility] % (Auto) 13.9 % (0.0-7.3) H 05/24/17 07:40 Eos % (Auto) 0.1 % (0.0-4.3) 05/24/17 07:40 Baso % (Auto) 0.3 % (0.0-1.8) 05/24/17 07:40 Lymph # 2.2 K/mm3 (1.2-5.4) 05/24/17 07:40 [facility] # 1.2 K/mm3 (0.0-0.8) H 05/24/17 07:40 Eos # 0.0 K/mm3 (0.0-0.4) 05/24/17 07:40 Baso # 0.0 K/mm3 (0.0-0.1) 05/24/17 07:40 Seg Neutrophils % 61.4 % (40.0-70.0) 05/24/17 07:40 Seg Neutrophils # 5.4 K/mm3 (1.8-7.7) 05/24/17 07:40 VBG pH 7.247 (7.320-7.420) L 05/23/17 11:49 Sodium 139 mmol/L (137-145) 05/28/17 07:11 Potassium 3.2 mmol/L (3.6-5.0) L 05/28/17 07:11 Chloride 99.6 mmol/L (98-107) 05/28/17 07:11 Carbon Dioxide 21 mmol/L (22-30) L 05/28/17 07:11 Anion Gap 22 mmol/L 05/28/17 07:11 BUN 5 mg/dL (7-17) L 05/28/17 07:11 Creatinine 0.5 mg/dL (0.7-1.2) L 05/28/17 07:11 Estimated GFR > 60 ml/min 05/28/17 07:11 BUN/Creatinine Ratio 10 % 05/28/17 07:11 Glucose 216 mg/dL (65-100) H 05/28/17 07:11 POC Glucose 77 (70-105) 05/28/17 22:19 Hemoglobin A1c 10.5 % (4-6) H 05/24/17 07:40 Osmolality 290 Mosm/kg 05/24/17 07:40 Calcium 8.2 mg/dL (8.4-10.2) L 05/28/17 07:11 Phosphorus 2.90 mg/dL (2.5-4.5) 05/24/17 10:29 Magnesium 1.80 mg/dL (1.7-2.3) 05/27/17 07:58 HCG, Qual Negative (Negative) 05/23/17 19:37 Urine Color Straw (Yellow) 05/23/17 12:28 Urine Turbidity Clear (Clear) 05/23/17 12:28 Urine pH 5.0 (5.0-7.0) 05/23/17 12:28 Ur Specific [place] 1.023 (1.003-1.030) 05/23/17 12:28 Urine Protein <15 mg/dl mg/dL (Negative) 05/23/17 12:28 Urine Glucose (UA) >=500 mg/dL (Negative) 05/23/17 12:28 Urine Ketones 80 mg/dL (Negative) 05/23/17 12:28 Urine Blood Mod (Negative) 05/23/17 12:28 Urine Nitrite Neg (Negative) 05/23/17 12:28 Urine Bilirubin Neg (Negative) 05/23/17 12:28 Urine Urobilinogen < 2.0 mg/dL (<2.0) 05/23/17 12:28 Ur Leukocyte Esterase Neg (Negative) 05/23/17 12:28 Urine WBC (Auto) 1.0 /HPF (0.0-6.0) 05/23/17 12:28 Urine RBC (Auto) 3.0 /HPF (0.0-6.0) 05/23/17 12:28 U Epithel Cells (Auto) 3.0 /HPF (0-13.0) 05/23/17 12:28 Urine Mucus Few /HPF 05/23/17 12:28 HIV 1&2 Antibody Rapid Non react (Non React) 05/28/17 15:41 HIV P24 Antigen Non react (Non React) 05/28/17 15:41
--- NOTE | 2017-05-29 12:32 | Discharge Summary ---
Providers - Providers Date of Admission: 05/24/17 07:39 Date of discharge: 05/29/17 Attending physician: MARCIO LIRA 05/24/17 09:19 Consult to Dietitian/Nutrition [CONS] Routine Physician Instructions: Reason For Exam: DKA Reason for Consult: Nutrition Recommendations Reason for Consult: Diet education Primary care physician: ANDREW GAVIRIA Hospitalization Condition: Stable Hospital course: Brief history: This is a 36-year-old female nontoxic, well nourished in appearance, no acute signs of distress presents to the ED with c/o of body aches , weakness, abdominal pain x1 week. She admitted with DKA protocol Discharge diagnosis and management: /DKA /diabetic ketoacidoses without coma Her blood sugars are fair However she still has metabolic acidosis although it's improving Continue IV fluids Change Accu-Cheks to before meals and at bedtime /Leukopenia: Unclear etiology We will monitor order hiv /Productive cough: Likely acute bronchitis cont on antibiotics by mouth /hypokalemia cont to replete and monitor / DVT prophylaxis On Lovenox Radiological test: Chest x-ray Abdominal pelvis CT - no acute intra-abdominal abnormalities. Left ovarian cyst Hospitalist Physical exam: GENERAL: well-developed and well-nourished lying on bed appeared to be in no discomfort. HEENT: Normocephalic. Atraumatic. No conjunctival congestion or icterus. Patient has moist mucous membranes. NECK: Supple. Trachea midline. CHEST/LUNGS: Clear to auscultated bilaterally, breathing nonlabored. No wheezes crackles or rhonchi. HEART/CARDIOVASCULAR: Regular in rate and rhythm. S1 and S2 positive. ABDOMEN: Abdomen is soft, nontender. Patient has normal bowel sounds. SKIN: There is no rash. Warm and dry. NEURO: No focal motor deficit. Follows command. MUSCULOSKELETAL: No joint effusion or tenderness. EXTRIMITY: No edema, no cyanosis or clubbing. PSYCH: Cooperative. Disposition: DC-01 TO HOME OR SELFCARE Time spent for discharge: 32 minutes Core Measure Documentation - Palliative Care Palliative Care/ Comfort Measures: Not Applicable - Core Measures Any of the following diagnoses?: none Exam - Constitutional Vitals: Temp Pulse Resp BP Pulse Ox 98.2 F 82 20 121/80 98 05/29/17 09:08 05/29/17 09:08 05/29/17 09:08 05/29/17 09:08 05/29/17 09:08 Plan Activity: advance as tolerated Weight Bearing Status: Weight Bear as Tolerated Diet: diabetic Additional Instructions: f/u with Obg/terminal operations supervisor in one week Follow up with: ANDREW GAVIRIA MD [Primary Care Provider] - 3-5 Days Forms: Work/School Release Form(ED) Prescriptions: Insulin NPH/Regular [NovoLIN 70/30] 15 unit SUB-Q BIDDIAB 60 Days units Insulin Regular, Human [Novolin R] See Protocol SQ TID 60 Days vial Levofloxacin [Levaquin TAB] 500 mg PO Q24H #3 tablet
[2017-05-29 12:53] VITALS: BP 116/70
[2017-05-29 13:44] LABS: BUN/Creatinine Ratio 13; Blood Urea Nitrogen 5 mg/dL (7-17); Calcium 8.3 mg/dL (8.4-10.2); Hemolysis Index 6
[2017-05-29] MEDS: LEVAQUIN PO SCH (14:01)
--- NOTE | 2017-05-29 14:19 | Discharge Summary ---
Providers - Providers Date of Admission: 05/24/17 07:39 Attending physician: MARCIO LIRA 05/24/17 09:19 Consult to Dietitian/Nutrition [CONS] Routine Physician Instructions: Reason For Exam: DKA Reason for Consult: Nutrition Recommendations Reason for Consult: Diet education Primary care physician: ANDREW GAVIRIA Hospitalization Condition: Stable Disposition: DC-01 TO HOME OR SELFCARE Core Measure Documentation - Palliative Care Palliative Care/ Comfort Measures: Not Applicable Exam - Constitutional Vitals: Temp Pulse Resp BP Pulse Ox 98.4 F 88 18 116/70 99 05/29/17 12:52 05/29/17 12:52 05/29/17 12:52 05/29/17 12:52 05/29/17 12:52 Plan Follow up with: ANDREW GAVIRIA MD [Primary Care Provider] - 3-5 Days Forms: Work/School Release Form(ED) Prescriptions: Insulin NPH/Regular [NovoLIN 70/30] 15 unit SUB-Q BIDDIAB 60 Days units Levofloxacin [Levaquin TAB] 500 mg PO Q24H #3 tablet
[2017-05-29] MEDS ORDERED: K-DUR PO ONE (15:11)
== END 2017-05-29 17:28 | disposition home or self-care (01) | DRG 639 ==
LOC: ED 10:16 → CC1 05-24 07:39 → 4A 05-25 15:46
PROVIDERS: ADMIT Internal Medicine; ATTEND Internal Medicine
DX: E10.10 Type 1 diabetes mellitus with ketoacidosis without coma (principal); D72.819 Decreased white blood cell count, unspecified; E87.6 Hypokalemia; Z79.4 Long term (current) use of insulin; Z79.899 Other long term (current) drug therapy
CPT/HCPCS: 36415; 71046; 74177; 80048; 81001; 82805; 82962; 83036; 83735; 83930; 84100; 84703; 85025; 85027; 87806; 93005; 93010; J1650; J1815; J1885; J2270; J2405; J3480; J7030; Q9967

== ENCOUNTER 2021-12-15 17:39 | Emergency (ER) | payer OTHER ==
[2021-12-15 21:16] LABS: Basophils % (Auto) 0.7 % (0.0-1.8); Eosinophils # (Auto) 0.1 K/mm3 (0.0-0.4); Eosinophils % (Auto) 1.4 % (0.0-4.3); Hemoglobin 13.3 gm/dl (10.1-14.3); Lymphocytes # (Auto) 1.5 K/mm3 (1.2-5.4); Mean Corpuscular HGB Conc 32 % (30-34); Mean Corpuscular Volume 95 fl (79-97); Monocytes # (Auto) 0.4 K/mm3 (0.0-0.8); Monocytes % (Auto) 9.6 % (0.0-7.3); Platelet Count 333 K/mm3 (140-440); Red Blood Count 4.29 M/mm3 (3.65-5.03); Red Cell Distribution Width 14.8 % (13.2-15.2)
[2021-12-15 21:37] LABS: Alanine Aminotransferase 13 units/L (7-56); Albumin 4.3 g/dL (3.9-5); Blood Urea Nitrogen 9 mg/dL (7-17); Calcium 9.1 mg/dL (8.4-10.2); Hemolysis Index 33
[2021-12-15 21:49] LABS: BUN/Creatinine Ratio 13
--- NOTE | 2021-12-16 08:01 | Emergency Department Report ---
ED N/V/D HPI - General Chief complaint: Abdominal Pain Stated complaint: TYPE 1 DIABETIC WEAK/LOW ENERGY Time Seen by Provider: 12/16/21 04:34 Source: patient Mode of arrival: Ambulatory Limitations: No Limitations - History of Present Illness Initial comments: 41-year-old female history of type 1 diabetes presents to the emergency department with abdominal pain. Patient reports has been experiencing pain in her lower abdomen since Sunday with generalized weakness loss of energy., Cold chills. No fever, no vomiting, no dysuria, she reports diarrhea states she has had about 5 episodes of loose stools without blood. Symptoms are without fever, no headache dizziness or vision changes, no chest pain, no shortness of breath. No recent travel or sick contacts. MD complaint: diarrhea, abdominal pain -: Gradual, days(s) Description of Diarrhea: other (loose) Associated Abdominal Pain: No Radiation: none Quality: cramping Consistency: intermittent Improves with: none Worsens with: none Context: possible food poisoning Associated Symptoms: weakness - Related Data Previous Rx's Medication Instructions Recorded Last Taken Type Insulin NPH/Regular [NovoLIN 70/30] 15 unit SUB-Q BIDDIAB 60 Days 05/29/17 Unknown Rx units Insulin Regular, Human [Novolin R] See Protocol SQ TID 60 Days vial 05/29/17 Unknown Rx levoFLOXacin [Levaquin TAB] 500 mg PO Q24H #3 tablet 05/29/17 Unknown Rx Hyoscyamine Subl [Levsin Sl 0.125 0.125 mg SL Q4HR PRN #20 tablet 12/16/21 Unknown Rx TAB] Nitrofurantoin [place]/M-Cryst 100 mg PO Q12HR 5 Days #10 capsule 12/16/21 Unknown Rx [Macrobid CAP] Allergies Allergy/AdvReac Type Severity Reaction Status Date / Time No Known Allergies Allergy Verified 01/02/14 11:05 ED Review of Systems ROS: Stated complaint: TYPE 1 DIABETIC WEAK/LOW ENERGY Other details as noted in HPI ED Past Medical Hx - Past Medical History Hx Congestive Heart Failure: No Hx Diabetes: Yes (type 1) Hx Asthma: No Hx COPD: No Hx HIV: No Additional medical history: Complex left ovarian cyst diagnosed 10 days ago on C T and ultrasound, Vaginal delivery x 2 - Social History Smoking Status: Never Smoker - Medications Home Medications: Home Medications Medication Instructions Recorded Confirmed Last Taken Type Insulin NPH/Regular [NovoLIN 70/30] 15 unit SUB-Q BIDDIAB 60 Days 05/29/17 Unknown Rx units Insulin Regular, Human [Novolin R] See Protocol SQ TID 60 Days vial 05/29/17 Unknown Rx levoFLOXacin [Levaquin TAB] 500 mg PO Q24H #3 tablet 05/29/17 Unknown Rx Hyoscyamine Subl [Levsin Sl 0.125 0.125 mg SL Q4HR PRN #20 tablet 12/16/21 Unknown Rx TAB] Nitrofurantoin [place]/M-Cryst 100 mg PO Q12HR 5 Days #10 capsule 12/16/21 Unknown Rx [Macrobid CAP] ED Physical Exam - General Limitations: No Limitations ED Course Vital Signs 12/15/21 19:35 Temperature 98.4 F Pulse Rate 83 Respiratory 20 Rate Blood Pressure 131/76 [Right] O2 Sat by Pulse 99 Oximetry ED Medical Decision Making - Lab Data Result diagrams: 12/15/21 21:06 12/15/21 21:06 - Medical Decision Making Differential diagnoses include gastroenteritis gastritis gastroparesis pancreatitis cholecystitis, colitis, diverticulitis, diverticulosis, UTI, SBO, 41-year-old female history of diabetes, presenting to the emergency room with abdominal pain diarrhea. Labs are reassuring no white count, lipase also within normal limit, patient has not had any febrile episodes vital signs are stable normal throughout ED course. Most likely viral versus food intolerance pathology however symptoms can be followed up outpatient with dietary modification. I discussed all of this with patient including return precautions follow-up with understanding. Critical care attestation.: If time is entered above; I have spent that time in minutes in the direct care of this critically ill patient, excluding procedure time. ED Disposition Clinical Impression: Gastroenteritis, Abdominal pain Disposition: HOME / SELF CARE / HOMELESS Is pt being admited?: No Does the pt Need Aspirin: No Condition: Stable Instructions: Abdominal Pain (ED), Viral Gastroenteritis, Adult, Urinary Tract Infection, Adult Prescriptions: Hyoscyamine Subl [Levsin Sl 0.125 TAB] 0.125 mg SL Q4HR PRN #20 tablet PRN Reason: Spasms Nitrofurantoin [place]/M-Cryst [Macrobid CAP] 100 mg PO Q12HR 5 Days #10 capsule Forms: Work/School Release Form(ED)
[2021-12-16 08:13] LABS: Mucus,Urine 1+ /HPF
[2021-12-16 08:23] LABS: Color,Urine Yellow (Yellow)
[2021-12-16 08:24] LABS: Bilirubin,Urine Negative (Negative); Blood,Urine Negative (Negative); Urobilinogen,Urine < 2.0 mg/dL (<2.0)
[2021-12-16 09:16] VITALS: BP 112/68
== END 2021-12-16 09:25 | disposition home or self-care (01) ==
LOC: ED 17:39
DX: K52.9 Noninfective gastroenteritis and colitis, unspecified (principal); R10.30 Lower abdominal pain, unspecified; E11.9 Type 2 diabetes mellitus without complications; Z79.899 Other long term (current) drug therapy
CPT/HCPCS: 36415; 80053; 81001; 82805; 83690; 84703; 85025; 99283